=== PATIENT | male | born 1975 | race Caucasian/White ===

== ENCOUNTER → 2020-10-26 | Outpatient (CLI) | payer BC, OTHER ==
--- NOTE | 2020-10-26 10:50 | REPVR ---
PROCEDURE INFORMATION: Exam: MR Cervical Spine Without Contrast Exam date and time: 10/26/2020 9:57 AM Age: 45 years old Clinical indication: Neck pain; Patient HX: Neck and low back pain; Additional info: Cervical and lumbar disc disease TECHNIQUE: Imaging protocol: Multiplanar magnetic resonance images of the cervical spine without contrast. COMPARISON: No relevant prior studies available. FINDINGS: Vertebrae: There is straightening of the normal cervical lordosis. There is no acute fracture or listhesis. Spinal cord: Normal signal. No cord compression. C2-C3: No significant disc disease. No significant spinal stenosis. C3-C4: There is a diffuse disc osteophyte complex. There is mild facet hypertrophy. There is severe bilateral neural foraminal narrowing. C4-C5: There is a diffuse disc osteophyte complex. There is moderate facet hypertrophy. There is severe bilateral neural foraminal narrowing. C5-C6: There is a diffuse disc osteophyte complex. There is moderate facet hypertrophy. There is mild right and severe left neural foraminal narrowing. C6-C7: There is a shallow disc osteophyte complex. There is [id number] facet hypertrophy. There is moderate left neural foraminal narrowing. C7-T1: There is a diffuse disc osteophyte complex with a left subarticular bulge and annular tear. There is moderate facet hypertrophy. There is moderate left neural foraminal narrowing. Soft tissues: Unremarkable. Vertebral arteries: Expected flow voids in the vertebral arteries. IMPRESSION: Degenerative disc disease and spondylosis, with multilevel moderate to severe neural foraminal narrowing. Electronically signed by: Vivian Claire On 10/26/2020 10:50:40 AM
--- NOTE | 2020-10-26 10:55 | REPVR ---
PROCEDURE INFORMATION: Exam: MR Lumbar Spine Without Contrast Exam date and time: 10/26/2020 9:57 AM Age: 45 years old Clinical indication: Patient HX: Neck and low back pain; Additional info: Cervical and lumbar disc disease TECHNIQUE: Imaging protocol: Multiplanar magnetic resonance images of the lumbar spine without intravenous contrast. COMPARISON: No relevant prior studies available. FINDINGS: Vertebrae: There is 3 mm of grade 1 retrolisthesis of L4 with respect to L5. Normal vertebral body alignment is otherwise preserved. Vertebral body heights are within normal limits. Spinal cord: The conus medullaris terminates at T12. The patient has a congenitally narrowed spinal canal. L1-L2: No significant disc disease. No significant spinal canal stenosis. No neural foraminal stenosis. L2-L3: There is diffuse disc bulging with a right paracentral/subarticular protrusion and annular tear. This effaces the right lateral recess, with potential compromise of the right L3 nerve root. In addition, this contributes to severe canal stenosis. There is mild facet hypertrophy. There is mild left neural foraminal narrowing. L3-L4: There is diffuse disc bulging with a prominent right paracentral/subarticular component and annular tear. There is moderate right lateral recess stenosis. There is severe canal stenosis. There is mild facet and ligamentous hypertrophy. The neural foramina are patent. L4-L5: There is diffuse disc bulging/uncovering related to listhesis with a central/paracentral inferior extrusion. There is severe right and moderate left lateral recess stenosis. There is moderate canal stenosis. There is moderate facet hypertrophy. There is mild bilateral neural foraminal narrowing. L5-S1: There is shallow disc bulging. There is mild facet hypertrophy. The spinal canal and neural foramina are patent. Soft tissues: Unremarkable. IMPRESSION: Degenerative disc disease and spondylosis in a patient with a congenitally narrowed spinal canal. Changes contribute to multilevel severe acquired canal stenosis. At L2/3, right paracentral/subarticular disc protrusion/extrusion effaces the right lateral recess, with potential compromise of the right L3 nerve root. At L4/5, disc bulging/uncovering with central/paracentral inferior extrusion effaces the right lateral recess, with potential compromise of the right L5 nerve root. Correlation with clinical symptoms is recommended. Electronically signed by: Vivian Claire On 10/26/2020 10:55:15 AM
== END ==
LOC: M RAD 08:30
PROVIDERS: ATTEND Physician Assistant
DX: M51.36 Other intervertebral disc degeneration, lumbar region (principal); M54.2 Cervicalgia